=== PATIENT | female | born 1970 | race African-American/Black ===

== ENCOUNTER 2018-03-27 16:02 | Emergency (ER) | payer OTHER ==
[2018-03-27] MEDS ORDERED: Dicyclomine 20 MG TAB ONE (17:01)
[2018-03-27] MEDS ORDERED: Ondansetron HCl/PF 4 MG/2 ML Vial ONE (17:01)
[2018-03-27 17:22] LABS: Anisocytosis SLIGHT = 6-15 cells (100X) (0-5/hpf); Eosinophils 1 % (0-10); Hemoglobin 9.6 g/dL (12.0-16.0); Hypochromia SLIGHT = 6-15 cells (100X) (0-5/hpf); Lymphocytes 20 % (21-51); MDiff Complete? YES; Mean Corpuscular HGB CONC 31.4 g/dL (32.0-36.0); Mean Corpuscular Hemoglobin 22.2 pg (27.0-31.0); Mean Corpuscular Volume 70.7 fL (78.0-98.0); Microcytosis SLIGHT = 6-15 cells (100X) (0-5/hpf); Monocytes 5 % (0-10); Neutrophil 74 % (42-75); PLT Morphology Comment Appears Increased; Platelet Count 652 thou/uL (130-400); Polychromasia SLIGHT = 2-3 cells (100X) (0-2/hpf); RBC Distribution Width 14.8 % (11.5-14.5); Stomatocytes SLIGHT = 2-5 cells (100X) (0-1/hpf); White Blood Cell (WBC) Count 8.3 thou/uL (4.8-10.8)
[2018-03-27 17:29] LABS: ALT (SGPT) 39 U/L (8-55); AST (SGOT) 28 U/L (5-34); Alkaline Phosphatase 278 U/L (40-150); Anion Gap 16 mmol/L (10-20); BUN (Urea Nitrogen) 13 mg/dL (7.0-18.7); Bilirubin, Total 0.6 mg/dL (0.2-1.2); Calc. Creatinine Clearance 0 mL/min (70-130); Carbon Dioxide 28 mmol/L (22-29); Chloride 102 mmol/L (98-107); Estimated GFR-MDRD Greater than 90; Globulin 4.1 g/dL (2.4-3.5); Glucose 100 mg/dL (70-105); Lipase 12 U/L (8-78); Potassium 3.8 mmol/L (3.5-5.1); Protein, Total 8.1 g/dL (6.0-8.3); Sodium 142 mmol/L (136-145)
[2018-03-27 17:30] LABS: CKMB 0.2 ng/mL (0-6.6); Troponin I Less than 0.010 ng/mL (< 0.028)
[2018-03-27] MEDS ORDERED: Ketorolac Tromethamine 30 MG/ML VIAL ONE (17:56)
== END 2018-03-27 19:25 | disposition home or self-care (01) ==
LOC: SCSER 16:02
DX: K52.9 Noninfective gastroenteritis and colitis, unspecified (principal); E78.00 Pure hypercholesterolemia, unspecified; I48.91 Unspecified atrial fibrillation; I10 Essential (primary) hypertension; Z79.82 Long term (current) use of aspirin; Z79.899 Other long term (current) drug therapy
CPT/HCPCS: 80053; 82553; 83690; 84484; 85025; 96361; 96372; 96374; 96375; J1885; J2405

== ENCOUNTER 2019-09-27 18:35 | Emergency (ER) | payer OTHER ==
[~2019-09-27 18:35] MED LIST: Iopamidol-370 76% 500 ML 1 ML ONE
[2019-09-27 19:08] LABS: #Lymphocytes 1.1 thou/uL (1.20-3.40); #Monocytes 0.5 thou/uL (0.11-0.59); #Neutrophils 3.9 thou/uL (1.40-6.50); %Basophils 0.4 % (0.0-1.0); %Eosinophils 0.3 % (0.0-10.0); %Lymphocytes 20.2 % (21.0-51.0); %Monocytes 8.4 % (0.0-10.0); %Neutrophils 70.8 % (42.0-75.0); Hemoglobin 13.5 g/dL (12.0-16.0); Mean Corpuscular HGB CONC 33.9 g/dL (32.0-36.0); Mean Corpuscular Hemoglobin 25.7 pg (27.0-31.0); Mean Corpuscular Volume 75.8 fL (78.0-98.0); Mean Platelet Volume 10.4 fL (7.4-10.4); Platelet Count 340 thou/uL (130-400); RBC Distribution Width 22.8 % (11.5-14.5); Red Blood Cell (RBC) Count 5.24 mill/uL (4.20-5.40); White Blood Cell (WBC) Count 5.6 thou/uL (4.8-10.8)
[2019-09-27] MEDS ORDERED: Morphine 4 MG/ML VIAL ONE ×2 (19:13→21:41)
[2019-09-27] MEDS ORDERED: Ondansetron PF 4 MG/2 ML Vial ONE (19:13)
[2019-09-27] MEDS ORDERED: methylPREDNISolone Sod Succ/PF 125 MG/2 ML VIAL ONE (19:13)
[2019-09-27] MEDS ORDERED: diphenhydrAMINE 50 MG/ML VIAL ONE (19:13)
[2019-09-27 19:27] LABS: Anisocytosis MODERATE=16-30 cells (100X) (0-5/hpf); Hypochromia SLIGHT = 6-15 cells (100X) (0-5/hpf); MDiff Complete? YES; Microcytosis SLIGHT = 6-15 cells (100X) (0-5/hpf); Platelet Morphology Comment Appears Adequate; Polychromasia SLIGHT = 2-3 cells (100X) (0-2/hpf); Schistocytes SLIGHT = 2-5 cells (100X) (0-1/hpf); Stomatocytes SLIGHT = 2-5 cells (100X) (0-1/hpf); Target Cells SLIGHT = 2-5 cells (100X) (0-1/hpf)
[2019-09-27 19:29] LABS: ALT (SGPT) 44 U/L (8-55); AST (SGOT) 33 U/L (5-34); Albumin 4.5 g/dL (3.5-5.0); Alkaline Phosphatase 260 U/L (40-110); Anion Gap 16 mmol/L (10-20); BUN (Urea Nitrogen) 14 mg/dL (7.0-18.7); Bilirubin, Total 0.7 mg/dL (0.2-1.2); Calc. Creatinine Clearance 0 mL/min (70-130); Calcium 10.2 mg/dL (7.8-10.44); Carbon Dioxide 25 mmol/L (22-29); Chloride 102 mmol/L (98-107); Estimated GFR-MDRD Greater than 90; Globulin 4.1 g/dL (2.4-3.5); Glucose 110 mg/dL (70-105); Protein, Total 8.6 g/dL (6.0-8.3); Sodium 139 mmol/L (136-145)
--- NOTE | 2019-09-27 20:08 | CT ---
CT ABDOMEN WITH CONTRAST CT PELVIS WITH CONTRAST: DATE: 09/27/2019 HISTORY: 49-year-old female with colon cancer, status post chemotherapy but no surgery, presents with generali zed abdominal pain, nausea, and vomiting. Pain began in the right lower quadrant. Dr. Coyle reported the high-grade colonic obstruction by telephone to Dr. Elias at 7:55 PM 09/27/2019. COMPARISON: None TECHNIQUE: IV injection of iodinated contrast media: administered. Oral contrast media:Not administered FINDINGS: There is fluid-filled lumen causing severe dilation of the right: from the cecum through the ascendin g colon and hepatic flexure, through the transverse colon, to the splenic flexure. At the splenic flexure, there is abrupt transition in caliber due to an approximately 3.5 cm irregularly-shaped soft tissue density mass. The entire descending colon, sigmoid colon, and rectum, are collapsed. There is mural thickening and mural edema involving the cecum and ascending colon, with mild pericolo tad fat stranding. The appendix is dilated to 10 mm caliber, probably because of the severe back pressure from the distended cecum. Multiple distal ileal loops, including terminal ileum, are fluid-f illed and mildly dilated up to 3 cm. Jejunum is not dilated. The severely distended transverse colon and splenic flexure displaces the body body of the pancreas m edially and tail of the pancreas posteriorly. There is a faint, ill-defined, slightly hypodense, approximately 1 cm or smaller focal subcapsular le leobardo in the right lobe of the liver, somewhere near the junction between hepatic segments 5 and 6. No other focal hepatic lesion. No portal vein thrombosis. Other than displacement, no abnormality of the pancreas. Normal abdominal aorta, kidneys, and spleen. No gastric distention. Centered slightly to the left of midline in the pelvic cavity, pelvic inlet, there is an apparently t hin-walled, slightly irregularly-shaped, approximately 4.5 x 4.5 x 5.5 cm cystic lesion, with slightly high density of contents, 18 Hounsfield units. No surrounding fat stranding. A normal uterus is not visualized. There is no ascites or pneumoperitoneum. Lung bases are clear. No destructive osseous lesion. IMPRESSION: 1. High-grade colonic obstruction at the splenic flexure by tumor: Colon cancer. 2. Tiny lesion in right lobe of liver: Solitary hepatic metastasis versus hemangioma versus some othe r type of lesion. Recommend further evaluation with multiphase CT of abdomen with and without contrast, liver mass protocol. 3. A 5.5 cm cystic lesion within the pelvic cavity with fluid density higher than that of serous flui d. Etiology uncertain.
== END 2019-09-27 22:30 | disposition short-term general hospital (02) ==
LOC: ERS 18:35
DX: K56.609 Unspecified intestinal obstruction, unspecified as to partial versus complete obstruction (principal); R11.2 Nausea with vomiting, unspecified; E78.00 Pure hypercholesterolemia, unspecified; I48.91 Unspecified atrial fibrillation; I10 Essential (primary) hypertension; Z79.899 Other long term (current) drug therapy
CPT/HCPCS: 36415; 74177; 80053; 83605; 85025; 96361; 96374; 96375; 96376; J1200; J2270; J2405; J2930; Q9967